=== PATIENT | male | born 1955 | race Caucasian/White ===

== ENCOUNTER → 2018-08-16 | Outpatient (CLI) | payer OTHER ==
[~2018-08-16] MED LIST: AMBIEN10 MG PO; DEXILANT60 MG PO; FLEXERIL10 MG PO; IMITREX100 MG PEG; JALYN 0.5-0.41 EACH PO; SYNTHROID50 MCG PO; TREXIMET 85-501 EACH PO; ZANTAC300 MG PO; ZESTRIL10 MG PO
--- NOTE | 2018-08-17 10:15 | Diagnostic Imaging Report ---
EXAMINATION: CT of the cervical spine HISTORY: Constant upper cervical pain. Prior spine fusion COMPARISON: Cervical spine MRI on 12/21/2014 TECHNIQUE: Multidetector helical axial images were obtained without contrast from the foramen magnum to T1. The images were reconstructed using bone and soft tissue algorithms and were viewed in axial, sagittal and coronal planes. Dose modulation, iterative reconstruction, and/or weight based adjustment of the mA/kV was utilized to reduce the radiation dose to as low as reasonably achievable. FINDINGS: Alignment: Normal alignment and lordosis Soft tissues: Normal Vertebrae: Normal height and density. No acute fracture, infection or neoplasm Degenerative changes: C1-C2: Normal C2-C3: Normal C3-C4: Mild symmetric disc bulge and a small 3 mm AP diameter central disc protrusion results in mild canal stenosis. No foraminal stenoses C4 to C7: Status post ACDF with solid interbody fusion from C4 to C7. No significant canal or foraminal stenosis. C5-C6: Normal C6-C7: Normal C7-T1: Facet arthroses mainly on the left. Minimal anterolisthesis. No significant canal or foraminal stenoses. IMPRESSION: 1. No acute cervical spine postraumatic abnormalities. 2. Mild spinal canal stenosis at C3-C4 due to a small central disc protrusion. 3. Minimal degenerative anterolisthesis at C7-T1 without stenosis. 4. Status post ACDF from C4 to C7 with solid interbody fusion. Note: Acute postraumatic spinal cord, vascular or ligamentous injuries cannot adequately be assessed by CT. Signed by: Dr. Miriam Forbes M.D. on 08/17/2018 10:12 AM
== END ==
LOC: CT 17:13
PROVIDERS: ATTEND Family Medicine
DX: M50.90 Cervical disc disorder, unspecified, unspecified cervical region (principal)
CPT/HCPCS: 72125

== ENCOUNTER → 2018-12-16 | Outpatient (RCR) | payer OTHER | LOC: PT 08:54 | PROVIDERS: ATTEND Neurological Surgery | DX: M48.02 Spinal stenosis, cervical region (principal); M54.2 Cervicalgia; M43.22 Fusion of spine, cervical region; M62.81 Muscle weakness (generalized) ==

== ENCOUNTER 2019-01-03 09:59 | Outpatient (RCR) | payer OTHER | END 2019-01-13 | LOC: PT 09:59 | PROVIDERS: ATTEND Neurological Surgery | DX: M48.02 Spinal stenosis, cervical region (principal); M43.22 Fusion of spine, cervical region; M54.2 Cervicalgia; M62.81 Muscle weakness (generalized) ==